=== PATIENT | female | born 1985 | race Caucasian/White ===

== ENCOUNTER 2023-06-07 07:57 | Inpatient (IN) ==
[2023-06-07] MEDS ORDERED: LIDOCAINE 1% LOCAL 20 ML VIAL INFIL PRN (08:33)
[2023-06-07] MEDS ORDERED: OXYTOCIN 30 UNITS/500 ML BAG IV PRN ×2 (08:33→14:50)
--- NOTE | 2023-06-07 08:33 | History & Physical Report ---
Date of Service June 07, 2023 Assessment & Plan (1) Normal labor: (2) Supervision of elderly primigravida: Plan admit, iv, labs. epidural if desires. fhts categ 1. History of Present Illness Chief Complaint: labor Primary Care Provider: YESIKA PCP 37yo at 40+wks ega presents to L&D noting increased fluid leakage and ctx since about 215am today. Patient notes coming to L&D due to ?rom last pm and sent home with amnisure negative. After leaving hospital noted increased leakage and called with regular ctx this am. Breathing with ctx. No vb. +FM PNC c/b 1. ama PNL rh pos, ri, gbs neg OBH: g1 GYNH: neg paps, no stds Allergies Allergy/AdvReac Type Severity Reaction Status Date / Time acetaminophen [From Tylenol] AdvReac Verified 06/04/23 08:25 Home Medications Medication Instructions Recorded Confirmed Type prenat.vits,sam,pfz-houn-gqzka 1 tab PO DAILY 11/05/22 06/04/23 History Patient History Surgical History (Updated 11/05/22 @ 13:16 by Nguyen Law) S/P ACL repair S/P wisdom tooth extraction Family History (Updated 11/05/22 @ 13:09 by Nguyen Law) Father Prostate cancer Other Dyslipidemia Heart disease Heart murmur Hypertension Social History (Updated 11/05/22 @ 13:10 by Nguyen Law) Smoking Status: Never smoker Second Hand Exposure: No; Do You Dip or Chew Tobacco: No; Hx Alcohol Use: No Hx Substance Use: No Preferred Language: Cymraes marital status: marital status details: Ishaan (54) [phone] Current Living Situation: Spouse Current Living Situation Comment: lives with spouse, 1 cat , spouse to change litter. current occupational status: employed current occupation: research associate. Feels Safe at Home: Yes Review of Systems as per Subjective / HPI Physical Exam Constitutional: WD/WN, vitals as above Respiratory: normal respiratory effort, lungs clear to auscultation Cardiovascular: Rate/Rhythm: regular rate and regular rhythm Gastrointestinal (Abdomen): soft gravid nt Musculoskeletal: no edema nontender calves Neurologic: grossly normal Psychiatric: A+Ox3, euthymic affect Genitourinary: Manual OB Exam: + cervical dilation 6 cm, + cervical effacement 100%, + station 0 and + amniotic fluid (gross srom) clear, nitrazine positive and ferning present OB Exam Monitor Tracing: + external FHT monitor used, + external uterine monitor used (q3), + category I and + normal FHT variability Results & Data Vital Signs (Past 12 Hours) Vital Signs Pulse BP 06/07/23 08:07 83 117/77 Coding Level of Care Code None Diagnoses Normal labor O80; Z37.9 Supervision of elderly primigravida O09.519
[2023-06-07] MEDS: LACTATED RINGER'S 1,000 ML IV PRN ×3 (08:46→12:34)
[2023-06-07] MEDS ORDERED: ePHEDrine sulfate 50 MG/ML AMP ONE (08:56)
[2023-06-07] MEDS ORDERED: LIDOCAINE 2%/EPINEPHRINE 1:200,000 20 ML PF ONE (08:56)
[2023-06-07] MEDS ORDERED: fentaNYL citrate PF 100 MCG/2 ML VIAL ONE (08:56)
[2023-06-07] MEDS ORDERED: BUPIVACAINE 0.25% PF 30 ML VIAL ONE (08:56)
[2023-06-07] MEDS ORDERED: SODIUM CHLORIDE 0.9% PF INJ 10 ML VIAL ONE (08:56)
[2023-06-07] MEDS ORDERED: fentaNYL 2MCG/ML ROPIVACAINE 1.25MG/ML 100 ML BAG EPI ONE (08:57)
[2023-06-07 09:08] LABS: Hematocrit (blood only) 33.3 % (37.0-47.0); Hemoglobin 11.3 g/dl (12.0-16.0); Mean Corpuscular Hemoglobin 28.4 pg (25.0-34.0); Mean Corpuscular Hgb Conc 33.9 g/dL (32.0-36.0); Mean Corpuscular Volume 83.7 fL (80.0-100.0); Platelet Count 285 K/uL (130-400); RDW Coefficient of Variation 13.3 % (11.5-14.5); RDW Standard Deviation 40.6 fL (36.4-46.3); Red Blood Count 3.98 M/uL (4.20-5.40); White Blood Count 15.81 K/ul (4.8-10.8)
[2023-06-07] MEDS ORDERED: SODIUM CHLORIDE 0.9% PF INJ 10 ML VIAL EPI PRN (09:45)
[2023-06-07] MEDS ORDERED: NALOXONE HCL 1 MG in SODIUM CHLORIDE 0.9% 1000ML 1,000 ML IV PRN (09:45)
[2023-06-07] MEDS ORDERED: LIDOCAINE 2%/EPINEPHRINE 1:200,000 20 ML PF EPI STA (09:45)
[2023-06-07] MEDS ORDERED: ROPIVACAINE 0.5% PF 5 MG/ML 20 ML VIAL EPI PRN (09:45)
[2023-06-07] MEDS ORDERED: BUPIVACAINE 0.25% PF 30 ML VIAL EPI STA (09:45)
[2023-06-07] MEDS ORDERED: fentaNYL 2MCG/ML ROPIVACAINE 1.25MG/ML 100 ML BAG EPI PRN (09:45)
[2023-06-07] MEDS ORDERED: NALOXONE HCL 0.4 MG/1 ML VIAL/CARP IV PRN (09:45)
[2023-06-07] MEDS ORDERED: fentaNYL citrate PF 100 MCG/2 ML VIAL EPI STA (09:45)
[2023-06-07] MEDS ORDERED: BUPIVACAINE 0.25% PF 30 ML VIAL EPI PRN (09:45)
[2023-06-07] MEDS ORDERED: LIDOCAINE 2% MPF LOCAL 5 ML VIAL EPI PRN (09:45)
[2023-06-07] MEDS ORDERED: fentaNYL citrate PF 100 MCG/2 ML VIAL EPI PRN (09:45)
[2023-06-07] MEDS ORDERED: NALBUPHINE HCL INJ 10 MG/ML AMP IV PRN (09:45)
[2023-06-07] MEDS ORDERED: diphenhydrAMINE 50 MG/ML VIAL IV PRN (09:45)
[2023-06-07] MEDS ORDERED: SODIUM CHLORIDE 0.9% PF INJ 10 ML VIAL EPI STA (09:45)
[2023-06-07] MEDS ORDERED: ePHEDrine sulfate 50 MG/ML AMP IV PRN (09:45)
[2023-06-07] MEDS ORDERED: ONDANSETRON INJ 2 MG/ML 2 ML VIAL IV PRN (09:45)
--- NOTE | 2023-06-07 09:45 | Anesthesiology Consultation ---
Date of Service June 07, 2023 Assessment & Plan Chart Review Chart Review: Acceptable Risk for Surgery and Patient NOT seen in Pre Admission Testing Consults Requested none ASA ASA2 Proposed Anesthesia Anesthesia Type: Labor Epidural Risk / Benefits Reviewed With: PT / POA / Parent / Guardian, Accepts Plan and Informed Consent Obtained History Height/Weight Height: 5 ft 7 in Weight: 81.374 kg Allergies Allergy/AdvReac Type Severity Reaction Status Date / Time acetaminophen [From Tylenol] AdvReac Verified 06/04/23 08:25 Medications Home Medications Medication Instructions Recorded Confirmed Last Taken prenat.vits,asm,yih-reop-dekpv 1 tab PO DAILY 11/05/22 06/07/23 06/04/23 Active Medications Generic Name Dose Route Start Last Admin Trade Name Freq PRN Reason Stop Dose Admin Lactated Ringer's 1,000 mls @ 125 mls/hr 06/07/23 08:33 06/07/23 08:46 Lr IV 06/09/23 08:32 999 mls/hr .Q8H PRN Administration L&D Protocol Protocol Exercise / Class Metabolic Activity II 4-5 Yardwork/Stairs/Walk up hill Past Family History Family History (Updated 11/05/22 @ 13:09 by Nguyen Law) Father Prostate cancer Other Dyslipidemia Heart disease Heart murmur Hypertension Past Surgical History Surgical History (Updated 06/07/23 @ 09:04 by Mariposa So RN) S/P ACL repair Right S/P wisdom tooth extraction Past Anesthesia History No Hx of Anesthesia Complications and No Family Hx of Anesthesia Complications History of PONV No Hx of PONV and No Hx of Motion Sickness Social History Smoking Status: Never smoker Do You Dip or Chew Tobacco: No Hx Alcohol Use: No Hx Substance Use: No substance use type: does not use Physical Exam Vital Signs Last Vital Signs Temp 36.5 C 06/07/23 09:17 Pulse 98 H 06/07/23 09:43 Resp 20 06/07/23 09:17 BP 104/68 06/07/23 09:42 Pulse Ox 100 06/07/23 09:43 ENMT Mouth: no dentition abnormality Thyromental Distance: > or= 3.5 Finger Breadths Mallampati Class: II Neck normal visual inspection Respiratory normal respiratory effort Auscultation: lungs clear to auscultation bilaterally Cardiovascular Rate/Rhythm: regular rate and regular rhythm Psychiatric Orientation: alert Testing Laboratory Results 06/07/23 08:46
--- NOTE | 2023-06-07 10:16 | Labor Progress Brief Note ---
Date of Service June 07, 2023 Subjective comfortable with epidural Assessment & Plan (1) Supervision of elderly primigravida: (2) Normal labor: Plan good cx change in spont labor. fhts categ 1. Admission and Anticipated Discharge Date Admission Date: June 07, 2023 Physical Exam Constitutional: WD/WN, vitals as above Genitourinary: Manual OB Exam: + cervical dilation 8 cm, + cervical effacement 100% and + station + 1 OB Exam Monitor Tracing: + external FHT monitor used, + external uterine monitor used (q2-3), + category I and + normal FHT variability Results & Data Vital Signs (Past 12 Hours) Vital Signs Temp Pulse Resp BP Pulse Ox 06/07/23 09:17 97.7 F 20 06/07/23 08:10 97.7 F 20 06/07/23 10:13 100 06/07/23 10:13 94 H 06/07/23 08:50 18 06/07/23 08:50 18 06/07/23 10:10 92 H 06/07/23 10:10 108/79 06/07/23 10:08 98 06/07/23 10:08 89 06/07/23 10:03 100 06/07/23 10:03 92 H 06/07/23 09:58 100 06/07/23 09:58 85 06/07/23 09:53 100 06/07/23 09:53 100 H 06/07/23 09:54 102 H 06/07/23 09:54 108/56 L 06/07/23 09:51 89 06/07/23 09:51 117/56 L 06/07/23 09:48 100 06/07/23 09:48 95 H 06/07/23 09:48 139/67 06/07/23 09:45 93 H 06/07/23 09:45 109/71 06/07/23 09:43 100 06/07/23 09:43 98 H 06/07/23 09:42 88 06/07/23 09:42 104/68 06/07/23 09:38 100 06/07/23 09:38 90 06/07/23 09:38 112/66 06/07/23 09:35 82 06/07/23 09:35 114/67 06/07/23 09:33 100 06/07/23 09:33 86 06/07/23 09:33 77 06/07/23 09:33 111/63 06/07/23 09:29 77 06/07/23 09:29 121/67 06/07/23 09:28 100 06/07/23 09:28 77 06/07/23 08:07 83 117/77 Coding Level of Care Code None Diagnoses Supervision of elderly primigravida O09.519 Normal labor O80; Z37.9
--- NOTE | 2023-06-07 14:40 | Delivery Summary ---
Vaginal Delivery Summary Date of Service June 07, 2023 Vaginal Delivery Summary Spontaneous vaginal delivery the patient was admitted by the prior on-call physician I was covering labor and delivery and she was pushing well after approximately 2 hours with epidural pushing she delivered her baby in occiput anterior position head was delivered mouth and nares suctioned no nuchal cord gentle traction the baby no excessive force live vigorous female infant cord clamped and cut cord blood obtained placenta removed with traction IV Pitocin started second-degree tear repaired with 3-0 Vicryl sponge and instrument counts were correct estimated blood loss 250 mL
[2023-06-07] MEDS ORDERED: bisacodyL 10 MG SUPP PR PRN (14:50)
[2023-06-07] MEDS ORDERED: HYDROCORTISONE ACETATE 25 MG SUPP PR PRN (14:50)
[2023-06-07] MEDS ORDERED: BENZOCAINE 20% SPRY 85 APPLN/85 GM CAN EXT PRN (14:50)
[2023-06-07] MEDS ORDERED: ACETAMINOPHEN 325 MG TAB PO PRN (14:50)
[2023-06-07] MEDS ORDERED: oxyCODONE/ACETAMINOPHEN 5mg/325mg TAB PO PRN (14:50)
[2023-06-07] MEDS ORDERED: DIPHTHERIA/TETANUS/PERTUSSIS Vaccine (Tdap, Age 7+yrs) 0.5mL SYR/VL IM ONE (14:50)
--- NOTE | 2023-06-07 15:28 | Anesthesia Procedure Note ---
Date of Service June 07, 2023 Anesthesia Post Epidural Note Vital Signs Vital Signs: Temp Pulse Resp BP Pulse Ox 36.9 C 96 H 18 112/61 98 06/07/23 13:45 06/07/23 15:09 06/07/23 14:00 06/07/23 15:09 06/07/23 14:23 Pain Intensity Abdomen: Pain Intensity: 3 Notes Mental Status: alert / awake / arousable Nausea / Vomiting: adequately controlled Pain: adequately controlled Airway Patency, RR, SpO2: stable & adequate BP & HR: stable & adequate Hydration State: stable & adequate Neuraxial Anesthesia: was administered and sensory block is resolving Anesthetic Complications: no major complications apparent and Pt Satisfied with anesthetic care Epidural: Removed without complications and With tip intact
[2023-06-07] MEDS ORDERED: Nursing to Pharmacy Communication SCH (16:45)
--- NOTE | 2023-06-07 19:33 | Obstetrical Progress Note ---
Date of Service <Demetris Medina MD - Last Filed: 06/08/23 07:37> June 07, 2023 Assessment & Plan <Demetris Medina MD - Last Filed: 06/08/23 07:37> (1) care following vaginal delivery: Plan 30 yo , status post on 06/07/23 - Pt is doing well clinically. Feels well today. Eating well, voiding well, ambulating well. Pain well controlled with PRN pain meds. - Routine care -- OOB, ambulation, diet progression as tolerated Vital Signs reviewed and WNL. (Tmax at 37.0) Hemoglobin Reviewed. 11.3 (06/07/23) 10.3 (today). Blood Type: AB+, GBS-, Rubella Immune. Encourage ambulation, monitor and control pain with Motrin PRN, resume regular diet, monitor lochia. Breast feeding encouraged. After discharge will have 6 week follow-up with Dr. Hartman. <Holly Serna MD, FACOG - Last Filed: 06/08/23 07:52> (1) care following vaginal delivery: Subjective <Demetris Medina MD - Last Filed: 06/08/23 07:37> Ambulation: ambulating normally (slow but good, legs are shaky) Voiding: no voiding problems and no incontinence (hasn't eaten enough to have BM pt thinks) Passing Gas:: Yes Diet Tolerance:: regular diet Lochia:: Small (started to lighten up this morning) Feeding Type:: breast feeding Current Pain Level(1-10): 4 (for the lac pain (kathrine with the Motrin and cold packs); cramping pain more a 3) , 37 yo F, s/p , day 1. Review of Systems All systems reviewed & are unremarkable except as noted in HPI & below Constitutional: + fatigue; no fever Eyes: no diplopia or no worsening vision Respiratory: + cough and + dyspnea on exertion (yesterday after resuming daily activities: showering, etc) Cardiovascular: no chest pain or no palpitations Breast: + breast pain (tiny bit) Gastrointestinal: no nausea, no vomiting or no diarrhea/loose stools Genitourinary (female): + dysuria (tiny bit); no urinary frequency or no urinary urgency Musculoskeletal: + myalgia (shoulder soreness from delivery); no body aches Integumentary: no rash Neurologic: no tingling or no numbness Physical Exam <Demetris Medina MD - Last Filed: 06/08/23 07:37> Respiratory normal respiratory effort, lungs clear to auscultation Cardiovascular RRR, no murmur, no edema Gastrointestinal (Abdomen) normal bowel sounds, soft, nontender, no hepatosplenomegaly Musculoskeletal Extremities: extremities normal to inspection Results & Data <Demetris Medina MD - Last Filed: 06/08/23 07:37> Vital Signs (Past 12 Hours) Vital Signs Temp Pulse Pulse Resp BP BP Pulse Ox 06/07/23 17:30 36.8 C 95 H 18 119/78 100 06/07/23 17:00 36.8 C 18 06/07/23 11:00 36.8 C 18 06/07/23 16:45 18 06/07/23 16:15 18 06/07/23 15:45 18 06/07/23 15:30 18 06/07/23 15:00 18 06/07/23 14:45 18 06/07/23 09:17 36.5 C 20 06/07/23 08:10 36.5 C 20 06/07/23 16:55 93 H 06/07/23 16:55 105/59 L 06/07/23 16:40 101 H 06/07/23 16:40 108/62 06/07/23 16:24 95 H 06/07/23 16:24 107/63 06/07/23 16:09 97 H 06/07/23 16:09 112/64 06/07/23 15:54 111 H 06/07/23 15:54 120/67 06/07/23 15:41 96 H 06/07/23 15:41 122/56 L 06/07/23 15:09 96 H 06/07/23 15:09 112/61 06/07/23 14:55 109 H 06/07/23 14:55 137/71 06/07/23 14:40 56 L 06/07/23 14:40 166/134 H 06/07/23 14:23 98 06/07/23 14:23 113 H 08/14/23 14:20 90 06/07/23 14:20 119 H 06/07/23 14:18 99 06/07/23 14:18 128 H 06/07/23 14:13 99 06/07/23 14:13 115 H 06/07/23 14:10 114 H 06/07/23 14:10 139/91 06/07/23 14:08 100 06/07/23 14:08 104 H 06/07/23 14:03 98 06/07/23 14:03 105 H 06/07/23 14:00 18 06/07/23 14:00 18 06/07/23 14:03 93 06/07/23 14:03 112 H 06/07/23 13:58 99 06/07/23 13:58 127 H 06/07/23 13:57 94 06/07/23 13:57 129 H 06/07/23 13:53 95 06/07/23 13:53 113 H 06/07/23 13:51 89 L 06/07/23 13:51 107 H 06/07/23 13:48 100 06/07/23 13:48 126 H 06/07/23 13:45 36.9 C 06/07/23 13:43 94 06/07/23 13:43 106 H 06/07/23 13:41 110 H 06/07/23 13:41 109/77 06/07/23 13:38 97 06/07/23 13:38 93 H 06/07/23 13:33 99 06/07/23 13:33 102 H 06/07/23 13:30 18 06/07/23 13:30 18 06/07/23 13:28 100 06/07/23 13:28 105 H 06/07/23 13:28 90 06/07/23 13:28 88 06/07/23 13:23 98 06/07/23 13:23 107 H 06/07/23 13:24 90 06/07/23 13:24 111/64 06/07/23 13:18 100 06/07/23 13:18 101 H 06/07/23 13:15 18 06/07/23 13:15 18 06/07/23 13:15 91 06/07/23 13:15 111 H 06/07/23 13:13 99 06/07/23 13:13 93 H 06/07/23 13:10 99 H 06/07/23 13:10 111/62 06/07/23 13:08 97 06/07/23 13:08 96 H 06/07/23 13:03 100 06/07/23 13:03 119 H 06/07/23 13:01 84 L 06/07/23 13:01 100 H 06/07/23 12:58 100 06/07/23 12:58 95 H 06/07/23 12:55 136 H 06/07/23 12:55 110/62 06/07/23 12:53 100 06/07/23 12:53 138 H 06/07/23 12:45 18 06/07/23 12:45 18 06/07/23 12:48 100 06/07/23 12:48 120 H 06/07/23 12:48 91 06/07/23 12:48 103 H 06/07/23 12:43 99 06/07/23 12:43 105 H 06/07/23 12:40 106 H 06/07/23 12:40 103/51 L 06/07/23 12:38 100 06/07/23 12:38 91 H 06/07/23 12:33 99 06/07/23 12:33 99 H 06/07/23 12:30 18 06/07/23 12:30 18 06/07/23 12:28 100 06/07/23 12:28 135 H 06/07/23 12:28 88 L 06/07/23 12:28 120 H 06/07/23 12:24 148 H 06/07/23 12:24 102/57 L 06/07/23 12:23 89 L 06/07/23 12:23 95 H 06/07/23 12:20 92 06/07/23 12:20 109 H 06/07/23 12:18 100 06/07/23 12:18 104 H 06/07/23 12:15 88 L 06/07/23 12:15 106 H 06/07/23 12:13 100 06/07/23 12:13 94 H 06/07/23 12:09 139 H 06/07/23 12:09 101/58 L 06/07/23 12:08 100 06/07/23 12:09 90 06/07/23 12:08 104 H 06/07/23 12:09 105 H 06/07/23 12:07 37.0 C 06/07/23 12:00 18 06/07/23 12:00 18 06/07/23 12:03 100 06/07/23 12:03 113 H 06/07/23 11:58 91 06/07/23 11:58 104 H 06/07/23 11:56 90 06/07/23 11:56 91 H 06/07/23 11:54 90 06/07/23 11:54 111/65 06/07/23 11:30 18 06/07/23 11:30 18 06/07/23 11:53 100 06/07/23 11:53 93 H 06/07/23 11:48 100 06/07/23 11:48 114 H 06/07/23 11:43 100 06/07/23 11:43 101 H 06/07/23 11:40 81 06/07/23 11:40 107/61 06/07/23 11:38 100 06/07/23 11:38 86 06/07/23 11:33 100 06/07/23 11:33 88 06/07/23 11:28 100 06/07/23 11:28 90 06/07/23 11:24 86 06/07/23 11:24 102/61 06/07/23 11:23 100 06/07/23 11:23 89 06/07/23 11:18 100 06/07/23 11:18 82 06/07/23 11:13 100 06/07/23 11:13 90 06/07/23 11:00 18 06/07/23 11:00 18 06/07/23 11:08 100 06/07/23 11:08 85 06/07/23 11:09 86 06/07/23 11:09 106/63 06/07/23 11:03 100 06/07/23 11:03 89 06/07/23 10:58 100 06/07/23 10:58 89 06/07/23 10:55 86 06/07/23 10:55 112/69 06/07/23 10:53 100 06/07/23 10:53 86 06/07/23 10:48 100 06/07/23 10:48 89 06/07/23 09:55 18 06/07/23 09:55 18 06/07/23 10:40 18 06/07/23 10:40 18 06/07/23 09:28 20 06/07/23 09:28 20 06/07/23 09:45 18 06/07/23 09:45 18 06/07/23 10:00 18 06/07/23 10:00 18 06/07/23 10:43 100 06/07/23 10:43 86 06/07/23 10:10 18 06/07/23 10:10 18 06/07/23 10:38 100 06/07/23 10:38 90 06/07/23 10:39 89 06/07/23 10:39 109/68 06/07/23 10:33 100 06/07/23 10:33 87 06/07/23 10:28 100 06/07/23 10:28 87 06/07/23 10:28 108/64 06/07/23 10:23 100 06/07/23 10:23 112 H 06/07/23 10:18 100 06/07/23 10:18 110 H 06/07/23 10:13 100 06/07/23 10:13 94 H 06/07/23 08:50 18 06/07/23 08:50 18 06/07/23 10:10 92 H 06/07/23 10:10 108/79 06/07/23 10:08 98 06/07/23 10:08 89 06/07/23 10:03 100 06/07/23 10:03 92 H 06/07/23 09:58 100 06/07/23 09:58 85 06/07/23 09:53 100 06/07/23 09:53 100 H 06/07/23 09:54 102 H 06/07/23 09:54 108/56 L 06/07/23 09:51 89 06/07/23 09:51 117/56 L 06/07/23 09:48 100 06/07/23 09:48 95 H 06/07/23 09:48 139/67 06/07/23 09:45 93 H 06/07/23 09:45 109/71 06/07/23 09:43 100 06/07/23 09:43 98 H 06/07/23 09:42 88 06/07/23 09:42 104/68 06/07/23 09:38 100 06/07/23 09:38 90 06/07/23 09:38 112/66 06/07/23 09:35 82 06/07/23 09:35 114/67 06/07/23 09:33 100 06/07/23 09:33 86 06/07/23 09:33 77 06/07/23 09:33 111/63 06/07/23 09:29 77 06/07/23 09:29 121/67 06/07/23 09:28 100 06/07/23 09:28 77 06/07/23 08:07 83 117/77 O2 Del Method 06/07/23 17:30 Room Air 06/07/23 17:00 06/07/23 11:00 06/07/23 16:45 06/07/23 16:15 06/07/23 15:45 06/07/23 15:30 06/07/23 15:00 06/07/23 14:45 06/07/23 09:17 06/07/23 08:10 06/07/23 16:55 06/07/23 16:55 06/07/23 16:40 06/07/23 16:40 06/07/23 16:24 06/07/23 16:24 06/07/23 16:09 06/07/23 16:09 06/07/23 15:54 06/07/23 15:54 06/07/23 15:41 06/07/23 15:41 06/07/23 15:09 06/07/23 15:09 06/07/23 14:55 06/07/23 14:55 06/07/23 14:40 06/07/23 14:40 06/07/23 14:23 06/07/23 14:23 06/07/23 14:20 06/07/23 14:20 06/07/23 14:18 06/07/23 14:18 06/07/23 14:13 06/07/23 14:13 06/07/23 14:10 06/07/23 14:10 06/07/23 14:08 06/07/23 14:08 06/07/23 14:03 06/07/23 14:03 06/07/23 14:00 06/07/23 14:00 06/07/23 14:03 06/07/23 14:03 06/07/23 13:58 06/07/23 13:58 06/07/23 13:57 06/07/23 13:57 06/07/23 13:53 06/07/23 13:53 06/07/23 13:51 06/07/23 13:51 06/07/23 13:48 06/07/23 13:48 06/07/23 13:45 06/07/23 13:43 06/07/23 13:43 06/07/23 13:41 06/07/23 13:41 06/07/23 13:38 06/07/23 13:38 06/07/23 13:33 06/07/23 13:33 06/07/23 13:30 06/07/23 13:30 06/07/23 13:28 06/07/23 13:28 06/07/23 13:28 06/07/23 13:28 06/07/23 13:23 06/07/23 13:23 06/07/23 13:24 06/07/23 13:24 06/07/23 13:18 06/07/23 13:18 06/07/23 13:15 06/07/23 13:15 06/07/23 13:15 06/07/23 13:15 06/07/23 13:13 06/07/23 13:13 06/07/23 13:10 06/07/23 13:10 06/07/23 13:08 06/07/23 13:08 06/07/23 13:03 06/07/23 13:03 06/07/23 13:01 06/07/23 13:01 06/07/23 12:58 06/07/23 12:58 06/07/23 12:55 06/07/23 12:55 06/07/23 12:53 06/07/23 12:53 06/07/23 12:45 06/07/23 12:45 06/07/23 12:48 06/07/23 12:48 06/07/23 12:48 06/07/23 12:48 06/07/23 12:43 06/07/23 12:43 06/07/23 12:40 06/07/23 12:40 06/07/23 12:38 06/07/23 12:38 06/07/23 12:33 06/07/23 12:33 06/07/23 12:30 06/07/23 12:30 06/07/23 12:28 06/07/23 12:28 06/07/23 12:28 06/07/23 12:28 06/07/23 12:24 06/07/23 12:24 06/07/23 12:23 06/07/23 12:23 06/07/23 12:20 06/07/23 12:20 06/07/23 12:18 06/07/23 12:18 06/07/23 12:15 06/07/23 12:15 06/07/23 12:13 06/07/23 12:13 06/07/23 12:09 06/07/23 12:09 06/07/23 12:08 06/07/23 12:09 06/07/23 12:08 06/07/23 12:09 06/07/23 12:07 06/07/23 12:00 06/07/23 12:00 06/07/23 12:03 06/07/23 12:03 06/07/23 11:58 06/07/23 11:58 06/07/23 11:56 06/07/23 11:56 06/07/23 11:54 06/07/23 11:54 06/07/23 11:30 06/07/23 11:30 06/07/23 11:53 06/07/23 11:53 06/07/23 11:48 06/07/23 11:48 06/07/23 11:43 06/07/23 11:43 06/07/23 11:40 06/07/23 11:40 06/07/23 11:38 06/07/23 11:38 06/07/23 11:33 06/07/23 11:33 06/07/23 11:28 06/07/23 11:28 06/07/23 11:24 06/07/23 11:24 06/07/23 11:23 06/07/23 11:23 06/07/23 11:18 06/07/23 11:18 06/07/23 11:13 06/07/23 11:13 06/07/23 11:00 06/07/23 11:00 06/07/23 11:08 06/07/23 11:08 06/07/23 11:09 06/07/23 11:09 06/07/23 11:03 06/07/23 11:03 06/07/23 10:58 06/07/23 10:58 06/07/23 10:55 06/07/23 10:55 06/07/23 10:53 06/07/23 10:53 06/07/23 10:48 06/07/23 10:48 06/07/23 09:55 06/07/23 09:55 06/07/23 10:40 06/07/23 10:40 06/07/23 09:28 06/07/23 09:28 06/07/23 09:45 06/07/23 09:45 06/07/23 10:00 06/07/23 10:00 06/07/23 10:43 06/07/23 10:43 06/07/23 10:10 06/07/23 10:10 06/07/23 10:38 06/07/23 10:38 06/07/23 10:39 06/07/23 10:39 06/07/23 10:33 06/07/23 10:33 06/07/23 10:28 06/07/23 10:28 06/07/23 10:28 06/07/23 10:23 06/07/23 10:23 06/07/23 10:18 06/07/23 10:18 06/07/23 10:13 06/07/23 10:13 06/07/23 08:50 06/07/23 08:50 06/07/23 10:10 06/07/23 10:10 06/07/23 10:08 06/07/23 10:08 06/07/23 10:03 06/07/23 10:03 06/07/23 09:58 06/07/23 09:58 06/07/23 09:53 06/07/23 09:53 06/07/23 09:54 06/07/23 09:54 06/07/23 09:51 06/07/23 09:51 06/07/23 09:48 06/07/23 09:48 06/07/23 09:48 06/07/23 09:45 06/07/23 09:45 06/07/23 09:43 06/07/23 09:43 06/07/23 09:42 06/07/23 09:42 06/07/23 09:38 06/07/23 09:38 06/07/23 09:38 06/07/23 09:35 06/07/23 09:35 06/07/23 09:33 06/07/23 09:33 06/07/23 09:33 06/07/23 09:33 06/07/23 09:29 06/07/23 09:29 06/07/23 09:28 06/07/23 09:28 06/07/23 08:07 <Holly Serna MD, FACOG - Last Filed: 06/08/23 07:52> Co-Signing Physician Notes Resident Physician Supervision Note: I was present with Dr. Medina during the history and exam. I discussed the case with the resident and agree with the findings and plan as documented in the note. Any exceptions or clarifications are listed here: stable, routine care. rh pos, ri,. Documented By: Holly Serna MD, FACOG
[2023-06-07] MEDS: DOCUSATE SODIUM 100 MG CAP PO SCH (20:31)
[2023-06-07] MEDS: IBUPROFEN 600 MG TAB PO PRN (23:05)
[2023-06-08 06:52] LABS: Hemoglobin 10.3 g/dl (12.0-16.0); Mean Corpuscular Hemoglobin 28.4 pg (25.0-34.0); Mean Corpuscular Hgb Conc 34.3 g/dL (32.0-36.0); Mean Corpuscular Volume 82.6 fL (80.0-100.0); Mean Platelet Volume 9.9 fL (9.4-12.4); Platelet Count 241 K/uL (130-400); RDW Coefficient of Variation 13.4 % (11.5-14.5); RDW Standard Deviation 40.6 fL (36.4-46.3); Red Blood Count 3.63 M/uL (4.20-5.40); White Blood Count 18.99 K/ul (4.8-10.8)
[2023-06-08] MEDS: DOCUSATE SODIUM 100 MG CAP PO SCH ×2 (08:26→20:26)
[2023-06-08] MEDS: PRENATAL VITAMIN 1 TAB PO SCH (08:26)
[2023-06-08] MEDS: IBUPROFEN 600 MG TAB PO PRN ×2 (08:26→14:14)
[2023-06-08] MEDS ORDERED: bisacodyL 5 MG TABEC PO SCH (20:00)
--- NOTE | 2023-06-08 21:02 | Obstetrical Progress Note ---
Date of Service <Demetris Medina MD - Last Filed: 06/09/23 07:17> June 08, 2023 Assessment & Plan <Demetris Medina MD - Last Filed: 06/09/23 07:17> (1) care following vaginal delivery: Plan 37 yo , status post , day 2, on 06/07/23 - Pt is doing well clinically. Feels well today. Eating well, voiding well, ambulating well. Pain well controlled with PRN pain meds. - Routine care -- OOB, ambulation, diet progression as tolerated Vital Signs reviewed and WNL. (Tmax at 37.0) with following exceptions: high HRs occasionally (i.e. 101) Hemoglobin Reviewed. 11.3 (06/07/23) 10.3 (06/08/23). Blood Type: AB+, GBS-, Rubella Immune. Encourage ambulation, monitor and control pain with Motrin PRN, resume regular diet, monitor lochia. Breast feeding encouraged. After discharge will have 6 week follow-up with Dr. Hartman. Pt counselled on discharge instructions. <Holly Mack MD, FACOG - Last Filed: 06/09/23 07:50> (1) care following vaginal delivery: Subjective <Demetris Medina MD - Last Filed: 06/09/23 07:17> Ambulation: ambulating normally Voiding: no voiding problems and no incontinence (still no BM) Passing Gas:: Yes Diet Tolerance:: regular diet (slight increased caloric intake) Lochia:: Small Feeding Type:: breast feeding Current Pain Level(1-10): 3 (generalized perineal and slight abdominal pain) 37 yo , s/p day 2, feeling some reisidual pain Constitutional: + fatigue; no fever Eyes: no diplopia or no worsening vision Respiratory: + cough; no dyspnea on exertion (yesterday after resuming daily activities: showering, etc) Cardiovascular: no chest pain or no palpitations Breast: + breast pain (tiny bit) Gastrointestinal: no nausea, no vomiting or no diarrhea/loose stools Genitourinary (female): + dysuria (tiny bit); no urinary frequency or no urinary urgency Musculoskeletal: no myalgia (no calf pain) or no body aches Integumentary: no rash Neurologic: no tingling or no numbness Physical Exam <Demetris Medina MD - Last Filed: 06/09/23 07:17> Respiratory normal respiratory effort, lungs clear to auscultation Cardiovascular RRR, no murmur, no edema Gastrointestinal (Abdomen) normal bowel sounds, soft, nontender, no hepatosplenomegaly Musculoskeletal Extremities: extremities normal to inspection Results & Data <Demetris Medina MD - Last Filed: 06/09/23 07:17> Vital Signs (Past 12 Hours) Vital Signs Temp Pulse Resp BP Pulse Ox O2 Del Method 06/08/23 20:25 36.5 C 101 H 16 106/74 98 Room Air 06/08/23 17:00 36.9 C 93 H 18 111/76 97 Room Air 06/08/23 12:30 36.4 C L 90 18 105/72 98 Room Air <Holly Mack MD, FACOG - Last Filed: 06/09/23 07:50> Co-Signing Physician Notes Resident Physician Supervision Note: I interviewed and examined the patient. Discussed with Dr. Medina and agree with findings and plan as documented in the note. Any exceptions or clarifi cations are listed here: [None] Documented By: Holly Mack MD, FACOG
[2023-06-09] MEDS: IBUPROFEN 600 MG TAB PO PRN ×2 (00:03→08:29)
[2023-06-09 06:22] LABS: Hematocrit (blood only) 29.1 % (37.0-47.0); Hemoglobin 9.6 g/dl (12.0-16.0)
[2023-06-09] MEDS: DOCUSATE SODIUM 100 MG CAP PO SCH (08:28)
[2023-06-09] MEDS: PRENATAL VITAMIN 1 TAB PO SCH (08:29)
== END 2023-06-09 11:20 | disposition home or self-care (01) | DRG 807 ==
LOC: OPB 07:57 → 4S1 07:58 → 4E2 17:23